=== PATIENT | male | born 1975 | race Asian ===

== ENCOUNTER 2024-05-17 22:01 | Emergency (ER) | payer OTHER ==
[~2024-05-17] VITALS: Ht 172.7 cm; Wt 70.3 kg
[2024-05-17 22:10] VITALS: BP_SYST 120; PULSE 107; RESP 22; TEMP 97; O2SAT 98
[2024-05-17 22:35] VITALS: BP_SYST 120; PULSE 107; RESP 22; TEMP 97; O2SAT 98
== END 2024-05-17 22:46 ==
LOC: SED 22:01
DX: Z02.89 Encounter for other administrative examinations (principal); F10.129 Alcohol abuse with intoxication, unspecified; Y90.6 Blood alcohol level of 120-199 mg/100 ml
CPT/HCPCS: 99283